=== PATIENT | female | born 1955 | race American Indian/Alaskan Native ===

== ENCOUNTER 2018-01-07 09:49 | Emergency (ER) | payer BC ==
[2018-01-07 10:39] LABS: SQUAMOUS EPITHIAL < 1 /hpf (0-5); URINE AMORPHOUS SEDIMENT RARE /ul (<OCC); URINE BILIRUBIN NEGATIVE (NEGATIVE); URINE BLOOD 3+ (NEGATIVE); URINE CLARITY Hazy (Clear); URINE COLOR Amber (YELLOW); URINE GLUCOSE (UA) NORMAL (Normal); URINE LEUKOCYTE ESTERASE NEG Leu/uL (Negative); URINE PROTEIN 2+ mg/dL (NEGATIVE); URINE UROBILINOGEN NORMAL mg/dL (0.2-1.0)
--- NOTE | 2018-01-07 12:01 | C.PDOC ---
History Of Present Illness 62 y/o female presents to the ED with intermittent vaginal bleeding for approx 1 week. Patient noticed dark clots when she would use the bathroom in the morning. Patient denies dysuria, vaginal discharge, fever, abdominal pain, vomiting, and diarrhea. Of note, Patient reports having a hysterectomy in 1994. PMD: Dr. Rodrick Sosa Time Seen by Provider: 01/07/18 10:03 Chief Complaint (Nursing): Female Genitourinary History Per: Patient History/Exam Limitations: no limitations Onset/Duration Of Symptoms: Days (1 week), Intermittent Episodes Current Symptoms Are (Timing): Still Present Severity: Mild Associated Symptoms: denies: Fever, Vomiting, Diarrhea, Urinary Symptoms Recent travel outside of the [place]: No Abnormal Vaginal Bleeding: Yes Past Medical History Reviewed: Historical Data, Nursing Documentation, Vital Signs Vital Signs: Last Vital Signs Temp 98.6 F 01/07/18 13:09 Pulse 78 01/07/18 13:09 Resp 18 01/07/18 13:09 BP 162/72 H 01/07/18 13:09 Pulse Ox 99 01/07/18 13:09 - Medical History PMH: HTN Other Surgeries: hysterectomy Family History: States: No Known Family Hx - Social History Hx Tobacco Use: No Hx Alcohol Use: No Hx Substance Use: No - Immunization History Hx Tetanus Toxoid Vaccination: No Hx Influenza Vaccination: No Hx Pneumococcal Vaccination: No Review Of Systems Constitutional: Negative for: Fever Cardiovascular: Negative for: Chest Pain Respiratory: Negative for: Shortness of Breath Gastrointestinal: Negative for: Nausea, Vomiting, Abdominal Pain, Diarrhea Genitourinary: Positive for: Vaginal Bleeding. Negative for: Dysuria, Vaginal Discharge Physical Exam - Physical Exam Appears: Well, Non-toxic, No Acute Distress Skin: Normal Color, Warm, Dry Eye(s): bilateral: Normal Inspection Oral Mucosa: Moist Cardiovascular: Rhythm Regular, No Murmur Respiratory: Normal Breath Sounds, No Rales, No Rhonchi, No Wheezing Gastrointestinal/Abdominal: Normal Exam, Bowel Sounds, Soft, No Tenderness Pelvic: Normal External Exam, Normal Speculum Exam, Normal Bimanual Exam, No Vaginal Bleeding, No Vaginal Discharge, No Cervical Motion Tenderness, No Cervix Open, No Adnexal Tenderness, No Mass, Other (cervix normal in appearance) Neurological/Psych: Oriented x3 ED Course And Treatment O2 Sat by Pulse Oximetry: 97 (RA) Pulse Ox Interpretation: Normal Progress Note: UA and pelvic US ordered and reviewed. US shows thickening of posterior urinary bladder. UA (-) for UTI, shows RBCs and blood. Symptoms likely urinary tract in origin. She understands the differential diagnosis of the US findings include focal cystitis vs malignancy. Explained findings to patient, and instructed her to follow up with urology within 1 week without fail. Rx for Ciprofloxacin given. Patient understands she should return to ED if symptoms worsen. Medical Decision Making Medical Decision Making: Scribe Attestation: Documented by Orville Goldman acting as a scribe for Nadya Dailey MD. MD Scribe Attestation: All medical record entries made by the Scribe were at my direction and personally dictated by me. I have reviewed the chart and agree that the record accurately reflects my personal performance of the history, physical exam, medical decision making, and the department course for this patient. I have also personally directed, reviewed, and agree with the discharge instructions and disposition. 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
--- NOTE | 2018-01-07 12:59 | US ---
HISTORY: POSTMENOPAUSAL BLEEDING COMPARISON: None available. TECHNIQUE: Transabdominal and transvaginal pelvic ultrasound was performed. FINDINGS: UTERUS: Surgically absent. RIGHT OVARY: Not visualized. LEFT OVARY: Not visualized. FREE FLUID: No significant free fluid noted. OTHER FINDINGS: Incidental note is made of asymmetric thickening in the posterior urinary bladder wall measuring 3.8 x 1.0 x 3.3 cm. IMPRESSION: Status post hysterectomy. Both ovaries are not visualized. Apparent polypoid focal thickening of the posterior urinary bladder wall, the differential considerations include polypoid neoplasm and focal cystitis. Please correlate with urinalysis and cystoscopy examination.
[2018-01-07 13:10] VITALS: BP 162/72; PULSE 78; RESP 18; TEMP 98.6
[2018-01-10 12:38] VITALS: O2SAT 97
== END 2018-01-07 13:10 | disposition home or self-care (01) ==
LOC: C.ER 09:49
DX: N30.90 Cystitis, unspecified without hematuria (principal); N32.9 Bladder disorder, unspecified